=== PATIENT | female | born 1950 | race Caucasian/White ===

== ENCOUNTER 2023-09-01 07:09 | Emergency (ER) | payer OTHER, MEDICARE ==
[2023-09-01] MEDS: Ketorolac 30 MG/ML SDV IM ONE (09:00)
== END 2023-09-01 09:40 | disposition home or self-care (01) ==
LOC: VM.ED 07:09
DX: S42.221A 2-part displaced fracture of surgical neck of right humerus, initial encounter for closed fracture (principal); W01.0XXA Fall on same level from slipping, tripping and stumbling without subsequent striking against object, initial encounter; Z88.0 Allergy status to penicillin; Z88.2 Allergy status to sulfonamides; Z79.82 Long term (current) use of aspirin
CPT/HCPCS: 73020-RT; 73060-RT; 96372; 99283; J1885